=== PATIENT | male | born 1940 | race Caucasian/White ===

== ENCOUNTER 2016-06-09 19:59 | Emergency (ER) | payer MEDICARE ==
--- NOTE | 2016-06-09 20:16 | Emergency Department Record ---
History of Present Illness - General Chief complaint: Lower Extremity Pain Stated complaint: RT LEG PAIN Time Seen by Provider: 06/09/16 20:16 Source: Patient Mode of Arrival: Wheelchair Limitations: No limitations - History of Present Illness Initial comments: The patient is here due to a hx of chronic R leg pain with walking that has worsened over the last 2 days. He states the pain is worsened with walking and the foot sometimes feels numb. He also feels some cramping in the calf with the walking. The patient denies any trauma, injury, thigh pain, CP, SOB or ELLIS. He has a hx of CAD but no hx of known PVD. Presently the patient denies any pain, discomfort or numbness to the R leg while lying on the cart. MD Complaint: Extremity pain Onset/Timin -: Days(s) Location: Right, Ankle History of Same: No Radiation: None Severity scale (1-10): 10 Quality: Other Consistency: Intermittent Improves with: Other Worsens with: Other Associated Symptoms: Denies other symptoms - Related Data Home Medications Medication Instructions Recorded Confirmed Last Taken Aspirin [Aspirin EC] 81 mg PO DAILY 07/29/14 06/09/16 07/29/14 Previous Rx's Medication Instructions Recorded Hydrocodone/Acetaminophen [[place] 1 each PO QID #15 tablet 06/09/16 5-325 Tablet] Allergies Allergy/AdvReac Type Severity Reaction Status Date / Time No Known Drug Allergies Allergy Verified 07/29/14 14:19 Travel Screening - Travel/Exposure Within Last 30 Days Have you traveled within the last 30 days?: No - Travel/Exposure Within Last Year Have you traveled outside the [place] in the last year?: No - Additonal Travel Details Have you been exposed to anyone with a communicable illness?: No - Travel Symptoms Symptom Screening: None Review of Systems Constitutional: Denies: Chills, Fever Eyes: Denies: Eye discharge ENT: Denies: Congestion Respiratory: Denies: Cough, Dyspnea Past Medical History - SOCIAL HISTORY Smoking Status: Never smoker Alcohol Use: None Drug Use: None - RESPIRATORY Hx Respiratory Disorders: No - CARDIOVASCULAR Hx Cardio Disorders: Yes Hx Heart Attack: Yes (2014) - NEURO Hx Neuro Disorders: No - GI Hx GI Disorders: No - Hx Genitourinary Disorders: No - ENDOCRINE Hx Endocrine Disorders: No - MUSCULOSKELETAL Hx Musculoskeletal Disorders: No - PSYCH Hx Psych Problems: No - HEMATOLOGY/ONCOLOGY Hx Hematology/Oncology Disorders: No Family Medical History Any Significant Family History?: Yes Hx Heart Disease: Mother, Brother/Sister, Grandparents Physical Exam - General General Appearance: Alert, Oriented x3, Cooperative, No acute distress - Head Head exam: Atraumatic, Normocephalic, Normal inspection - Eye Eye exam: Normal appearance, PERRL - Neck Neck exam: Normal inspection, Full ROM. negative: Tenderness - Respiratory Respiratory exam: Normal lung sounds bilaterally. negative: Respiratory distress - Cardiovascular Cardiovascular Exam: Regular rate, Normal rhythm, Normal heart sounds - Extremities Extremities exam: Normal inspection (There is no swelling, bruising, erythema or edema.), Full ROM, Normal capillary refill, Tenderness (mild to the distal posterior lower leg.), Other (The R foot has normal sensation. The DP pulses are trace bilaterally and equal and the PT pulses are strong and full and equal bilaterally.). negative: Calf tenderness, Joint swelling, Pedal edema - Neurological Neurological exam: Alert, Oriented X3. negative: Motor sensory deficit (There is no motor or sensory deficit to the R lower leg and foot.) Course Vital Signs 06/09/16 20:07 Temperature 97.3 F L Pulse Rate 63 Respiratory 16 Rate Blood Pressure 191/91 Pulse Ox 95 - Reevaluation(s) Reevaluation #1: The patient is doing very well at this time. He denies any leg pain or discomfort and is able to walk with no pain initially but then does develop some lower leg pain with the walking. I explained to him that the leg appears normal at this time but I do feel he will need an US tomorrow. The patient states he cannot come back in the morning but can return in the early afternoon for the test. 06/09/16 21:11 Medical Decision Making - Data Complexity MDM Data: Labs Ordered and/or Reviewed, X-Ray Ordered and/or Reviewed - Lab Data Result diagrams: 06/09/16 20:35 06/09/16 20:35 - Radiology Data Radiology results: Report reviewed (R leg: Neg.) Disposition Disposition: Discharge Clinical Impression: Leg pain, right Disposition: Home, Self-Care Condition: (1) Good Instructions: Arthralgia (ED) Additional Instructions: Please take Tylenol or [place] for the pain. Please return to the ER in the morning or early afternoon tomorrow for the vascular tests of the R leg. Return to the ER sooner for any increased pain, swelling, fever, or any new issues. Prescriptions: Hydrocodone/Acetaminophen [[place] 5-325 Tablet] 1 each PO QID #15 tablet Forms: Patient Portal Access Time of Disposition: 21:17
[2016-06-09 20:41] LABS: GRAN % 50.7 % (47-80); HEMATOCRIT 41.9 % (42.0-52.0); HEMOGLOBIN 13.8 gm/dl (14.0-18.0); LYMPH % 34.2 % (16-45); MEAN CELL VOLUME 86.6 fl (81-97); MEAN CORPUSCULAR HEMOGLOBIN 28.5 pg (27-33); MEAN CORPUSCULAR HGB CONC 32.9 g/dl (32-36); MEAN PLATELET VOLUME 11.4 fl (7.4-10.4); MONO % 10.1 % (0-9); PLATELET COUNT 157 K/uL (130-400); RED BLOOD COUNT 4.84 M/uL (4.40-5.70); RED CELL DISTRIBUTION WIDTH 15.9 % (11.5-14.5); WHITE BLOOD COUNT W/O DIFF 5.1 K/uL (4.2-12.2)
[2016-06-09 20:51] LABS: ANION GAP 11.8 (7-16); BLOOD UREA NITROGEN 17 mg/dL (9-20); CARBON DIOXIDE 22.2 mmol/L (22-30); EST GLOMERULAR FILTRATION RATE > 60 ml/min; GLUCOSE,RANDOM 91 mg/dL (70-110)
[2016-06-09 20:54] LABS: INR 1.14; PROTHROMBIN TIME (PATIENT) 12.9 SECONDS (9.5-12.1)
[2016-06-09] MEDS ORDERED: ACETAMINOPHEN 325 MG TAB PO ONE (21:10)
[2016-06-09] MEDS ORDERED: ENOXAPARIN 100 MG/ML SYR SQ ONE (21:10)
[2016-06-09] MEDS ORDERED: HYDROCODONE/APAP 5/325MG TABLET PO ONE (21:18)
--- NOTE | 2016-06-11 12:19 | RADIOLOGY REPORT ---
EXAM: RIGHT TIBIA AND FIBULA, TWO VIEWS HISTORY: CHRONIC RIGHT CALF PAIN. TECHNIQUE: Two views of the right tibia and fibula were obtained. Comparison: None. FINDINGS: No bone or joint abnormality. IMPRESSION: NEGATIVE RIGHT TIBIA AND FIBULA. JOB NUMBER: [id number] [facility]TDD
== END 2016-06-09 21:25 | disposition home or self-care (01) ==
LOC: ER 19:59
DX: M79.661 Pain in right lower leg (principal); M25.571 Pain in right ankle and joints of right foot; R20.0 Anesthesia of skin; I25.10 Atherosclerotic heart disease of native coronary artery without angina pectoris; I25.2 Old myocardial infarction
CPT/HCPCS: 80048; 85025; 85610; 85730; 96372; 99283; J1650

== ENCOUNTER 2016-06-10 13:35 | Emergency (ER) | payer MEDICARE ==
[2016-06-10] MEDS ORDERED: IBUPROFEN 600 MG TABLET PO ONE (18:10)
[2016-06-10] MEDS ORDERED: HYDROCODONE/APAP 5/325MG TABLET PO ONE (18:10)
--- NOTE | 2016-06-10 18:17 | Emergency Department Record ---
History of Present Illness - General Chief complaint: Extremity Problem Stated complaint: NEEDS MORE TESTING Time Seen by Provider: 06/10/16 13:49 Source: Patient Mode of Arrival: Ambulatory Limitations: No limitations - History of Present Illness Initial comments: pt here to get dopplers of r leg after being seen by dr camacho last night. pt is having r leg pain and is concerned that he might have a blood clot and arterial blockage. pt has significant pain in r leg that gets much worse with walking.he states that he has a lot of leg cramps and he has been hyperflexing his foot to relieve the cramps. MD Complaint: Extremity pain Onset/Timin -: Days(s) Location: Right, Ankle, Foot, Lower Leg History of Same: Yes Radiation: Proximal, Distal Severity scale (1-10): 5 Quality: Aching, Stabbing Consistency: Constant Improves with: Nothing Worsens with: Nothing Associated Symptoms: Denies other symptoms - Related Data Home Medications Medication Instructions Recorded Confirmed Last Taken Aspirin [Aspirin EC] 81 mg PO DAILY 07/29/14 06/10/16 1 Day Ago Previous Rx's Medication Instructions Recorded Hydrocodone/Acetaminophen [[place] 1 each PO QID #15 tablet 06/09/16 5-325 Tablet] Allergies Allergy/AdvReac Type Severity Reaction Status Date / Time No Known Drug Allergies Allergy Verified 06/10/16 13:50 Travel Screening - Travel/Exposure Within Last 30 Days Have you traveled within the last 30 days?: No - Travel/Exposure Within Last Year Have you traveled outside the [place] in the last year?: No - Additonal Travel Details Have you been exposed to anyone with a communicable illness?: No - Travel Symptoms Symptom Screening: None Review of Systems Reviewed: No additional complaints except as noted below Constitutional: Reports: As per HPI. Denies: Chills, Fever, Malaise, Night sweats, Weakness, Weight change Eyes: Reports: As per HPI. Denies: Eye discharge, Eye pain, Photophobia, Vision change ENT: Reports: As per HPI. Denies: Congestion, Dental pain, Ear pain, Epistaxis , Hearing loss, Throat pain Respiratory: Reports: As per HPI. Denies: Cough, Dyspnea, Hemoptysis, Stridor, Wheezes Cardiovascular: Reports: As per HPI. Denies: Arrhythmia, Chest pain, Dyspnea on exertion, Edema, Murmurs, Orthopnea, Palpitations, Paroxysmal nocturnal dyspnea, Rheumatic Fever, Syncope Endocrine: Reports: As per HPI. Denies: Fatigue, Heat or cold intolerance, Polydipsia, Polyuria Gastrointestinal: Reports: As per HPI. Denies: Abdominal pain, Constipation, Diarrhea, Hematemesis, Hematochezia, Melena, Nausea, Vomiting Genitourinary: Reports: As per HPI. Denies: Dysuria, Frequency, Hematuria, Incontinence, Retention, Testicular pain, Testicular mass, Urgency Musculoskeletal: Reports: As per HPI. Denies: Arthralgia, Back pain, Gout, Joint swelling, Myalgia, Neck pain Skin: Reports: As per HPI. Denies: Bruising, Change in color, Change in hair/ nails, Lesions, Pruritus, Rash Neurological: Reports: As per HPI. Denies: Abnormal gait, Confusion, Headache, Numbness, Paresthesias, Seizure, Tingling, Tremors, Vertigo, Weakness Psychiatric: Reports: As per HPI. Denies: Anxiety, Auditory hallucinations, Depression, Homicidal thoughts, Suicidal thoughts, Visual hallucinations Hematological/Lymphatic: Reports: As per HPI. Denies: Anemia, Blood Clots, Easy bleeding, Easy bruising, Swollen glands Past Medical History - SOCIAL HISTORY Smoking Status: Never smoker Alcohol Use: Rare Drug Use: None - RESPIRATORY Hx Respiratory Disorders: No - CARDIOVASCULAR Hx Cardio Disorders: Yes Hx Heart Attack: Yes (2014) - NEURO Hx Neuro Disorders: No - GI Hx GI Disorders: No - Hx Genitourinary Disorders: No - ENDOCRINE Hx Endocrine Disorders: No - MUSCULOSKELETAL Hx Musculoskeletal Disorders: No - PSYCH Hx Psych Problems: No - HEMATOLOGY/ONCOLOGY Hx Hematology/Oncology Disorders: No Family Medical History Any Significant Family History?: Yes Hx Heart Disease: Mother, Brother/Sister, Grandparents Physical Exam - General General Appearance: Alert, Oriented x3, Cooperative, Mild distress - Head Head exam: Normal inspection - Eye Eye exam: Normal appearance, PERRL, EOMI Pupils: Normal accommodation - ENT ENT exam: Normal exam, Mucous membranes moist, Normal external ear exam, Normal orophraynx Ear exam: Normal external inspection. negative: External canal tenderness Nasal Exam: Normal inspection. negative: Discharge, Sinus tenderness Mouth exam: Normal external inspection, Tongue normal Teeth exam: Normal inspection. negative: Dental caries Throat exam: Normal inspection. negative: Tonsillar erythema, Tonsillar exudate - Neck Neck exam: Normal inspection, Full ROM. negative: Tenderness - Respiratory Respiratory exam: Normal lung sounds bilaterally. negative: Respiratory distress - Cardiovascular Cardiovascular Exam: Regular rate, Normal rhythm, Normal heart sounds Peripheral Pulses: 1+: Dorsalis Pedis (R) (very faint), Dorsalis Pedis (L) - GI/Abdominal GI/Abdominal exam: Soft, Normal bowel sounds. negative: Tenderness - Rectal Rectal exam: Deferred - exam: Deferred - Extremities Extremities exam: Normal inspection, Full ROM, Normal capillary refill, Tenderness (surrounding achilles. achilles is intact. norm lalita.) - Back Back exam: Reports: Normal inspection, Full ROM. Denies: Muscle spasm, Rash noted, Tenderness - Neurological Neurological exam: Alert, CN II-XII intact, Normal gait, Oriented X3 - Psychiatric Psychiatric exam: Normal affect, Normal mood - Skin Skin exam: Dry, Intact, Normal color, Warm Course Vital Signs 06/10/16 06/10/16 13:44 17:53 Temperature 97.8 F Pulse Rate 61 Pulse Rate [ 58 L Pulse Ox Probe] Respiratory 18 18 Rate Blood Pressure 179/94 Blood Pressure 199/98 [Left Arm] Pulse Ox 98 98 - Reevaluation(s) Reevaluation #1: 06/10/16 18:20 d/w pt who does recall hyper flexing foot for a long time with a hoe in an effort to relieve cramp Reevaluation #2: 06/10/16 18:22 venous and arterial dopplers negative Disposition Disposition: Discharge Clinical Impression: Strain of Achilles tendon Qualifiers: Encounter type: initial encounter Laterality: right Qualified Code(s): S86.011A - Strain of right Achilles tendon, initial encounter Hypertension Qualifiers: Hypertension type: essential hypertension Qualified Code(s): I10 - Essential ( primary) hypertension Disposition: Home, Self-Care Condition: (1) Good Instructions: Achilles Tendinitis (ED), Chronic Hypertension (ED) Additional Instructions: follow up with family doctor and with orthopedics. return sooner if worse. have blood pressure rechecked tomorrow and be seen by family doctor. Forms: Patient Portal Access
--- NOTE | 2016-06-14 13:20 | US VENOUS DOPPLER REPORT ---
EXAM: RIGHT LOWER EXTREMITY VENOUS DOPPLER ULTRASOUND HISTORY: PAIN IN RIGHT LEG WITH DECREASED PULSE. TECHNIQUE: Real-time B-mode imaging with and without compression was used to evaluate the right lower extremity for deep venous thrombosis. Duplex Doppler with color and spectral Doppler was used. Comparison: None. FINDINGS: The right common femoral vein showed no DVT. The right femoral vein showed no DVT. The right popliteal vein showed no DVT. The right proximal deep femoral vein showed no DVT. The right posterior tibial vein showed no DVT. The right peroneal vein was not seen. The right proximal greater saphenous vein showed no thrombus. Duplex Doppler and spectral Doppler waveforms shows normal respiratory phasicity in the right common femoral vein. IMPRESSION: NO EVIDENCE RIGHT LOWER EXTREMITY DEEP VENOUS THROMBOSIS IN THE VISUALIZED RIGHT LOWER EXTREMITY. JOB NUMBER: [id number] [facility]TDD
--- NOTE | 2016-06-14 13:53 | US UNI ARTERIAL DOPPLER REPORT ---
EXAM: ARTERIAL DOPPLER OF THE RIGHT LOWER EXTREMITY HISTORY: RIGHT LEG PAIN WITH DECREASED RIGHT LEG PULSE. HISTORY OF CLAUDICATION, RIGHT LOWER EXTREMITY PAIN, CARDIAC DISEASE, HISTORY OF CABG. TECHNIQUE: Real-time ball scale sonographic imaging of the right lower extremity was performed with Duplex Doppler and spectral waveform analysis. Comparison: None. FINDINGS: Spectral waveform analysis reveals normal biphasic and triphasic waveforms at all stations. Ball scale images reveal no evidence of significant atherosclerotic change in the visualized right lower extremity arterial system. Velocities are as follows: Right common femoral artery PSV: 60 cm/s Right profunda femoral artery PSV: 59 cm/s Right proximal SFA PSV: 76 cm/s Right mid SFA PSV: 62 cm/s Right distal SFA PSV: 50 cm/s Right popliteal artery PSV: 59 cm/s Right anterior tibial artery PSV: 38 cm/s Right posterior tibial artery PSV: 60 cm/s Right peroneal artery PSV: NA Right dorsalis pedis artery PSV: 32 cm/s IMPRESSION: UNREMARKABLE ARTERIAL DOPPLER ULTRASOUND OF THE RIGHT LOWER EXTREMITY WITH NO HEMODYNAMICALLY SIGNIFICANT STENOSIS IDENTIFIED. JOB NUMBER: [id number] [facility]TDD
== END 2016-06-10 18:34 | disposition home or self-care (01) ==
LOC: ER 13:35
DX: S86.011A Strain of right Achilles tendon, initial encounter (principal); X50.0XXA Overexertion from strenuous movement or load, initial encounter; I10 Essential (primary) hypertension; I25.2 Old myocardial infarction
CPT/HCPCS: 99283

== ENCOUNTER 2016-11-13 13:09 | Emergency (ER) | payer MEDICARE ==
--- NOTE | 2016-11-13 13:38 | Emergency Department Record ---
History of Present Illness - General Chief Complaint: Dizziness Stated Complaint: DIZZINES, NAUSEA Time Seen by Provider: 11/13/16 13:11 Source: Patient Mode of Arrival: Ambulatory Limitations: No limitations - History of Present Illness Initial Comments: 75 yo male presents to ED with a CC of nausea, weakness, dizziness, and chest discomfort 2 days ago which as resolved. Patient reports "I feel like I don't have any steam". Patient denies fevers, chills, cough, or recent illness. Patient does report increase in his Gabapentin just prior to the onset of his symptoms. Patient reports a history of CAD s/p bypass in 2005 and stenting in 2014. Patient denies any focal weakness on examination. MD Complaint: Dizziness Onset/Timin -: Days(s) Timing: Constant Description: Lightheadedness, Nausea, Off-balance History of Same: No History of Trauma: No Severity: Mild Improves With: Nothing Associated Symptoms: Denies other symptoms - Nazario Coma Scale Eye Response: (4) Open spontaneously Motor Response: (6) Obeys commands Verbal Response: (5) Oriented Nazario Total: 15 - Related Data Home Medications Medication Instructions Recorded Confirmed Last Taken Gabapentin [Neurontin] 300 mg PO TID 11/13/16 11/13/16 11/10/16 Gabapentin [Neurontin] 600 mg PO 11/13/16 11/13/16 11/10/16 Oxycodone HCl/Acetaminophen 1 tab PO Q6H PRN 11/13/16 11/13/16 11/10/16 [Percocet 5mg/325mg] Previous Rx's Medication Instructions Recorded Meclizine HCl [Antivert] 25 mg PO Q8H #15 tablet 11/13/16 Ondansetron [Zofran Odt] 4 mg PO Q6H PRN #20 tab.rapdis 11/13/16 Allergies Allergy/AdvReac Type Severity Reaction Status Date / Time No Known Drug Allergies Allergy Verified 06/10/16 13:50 Travel Screening - Travel/Exposure Within Last 30 Days Have you traveled within the last 30 days?: No - Travel/Exposure Within Last Year Have you traveled outside the [place] in the last year?: No - Additonal Travel Details Have you been exposed to anyone with a communicable illness?: No - Travel Symptoms Symptom Screening: None Review of Systems Constitutional: Reports: Weakness (generalized). Denies: Chills, Fever, Malaise , Night sweats Eyes: Denies: Eye discharge, Eye pain ENT: Denies: Congestion, Ear pain, Epistaxis Respiratory: Denies: Cough, Dyspnea Cardiovascular: Reports: Chest pain. Denies: Dyspnea on exertion, Palpitations Endocrine: Reports: Fatigue. Denies: Heat or cold intolerance Gastrointestinal: Reports: Nausea. Denies: Abdominal pain, Vomiting Genitourinary: Denies: Incontinence, Retention Musculoskeletal: Denies: Arthralgia, Back pain, Gout, Joint swelling Skin: Denies: Bruising, Change in color Neurological: Denies: Abnormal gait, Confusion, Headache, Seizure Psychiatric: Denies: Anxiety Hematological/Lymphatic: Denies: Anemia, Blood Clots Past Medical History - SOCIAL HISTORY Smoking Status: Never smoker Drug Use: None - RESPIRATORY Hx Respiratory Disorders: No - CARDIOVASCULAR Hx Cardio Disorders: Yes Hx Heart Attack: Yes (2014) - NEURO Hx Neuro Disorders: No - GI Hx GI Disorders: No - Hx Genitourinary Disorders: No - ENDOCRINE Hx Endocrine Disorders: No - MUSCULOSKELETAL Hx Musculoskeletal Disorders: No - PSYCH Hx Psych Problems: No - HEMATOLOGY/ONCOLOGY Hx Hematology/Oncology Disorders: No Family Medical History Any Significant Family History?: No Hx Heart Disease: Mother, Brother/Sister, Grandparents Physical Exam - General General Appearance: Alert, Oriented x3, Cooperative, No acute distress Limitations: No limitations - Head Head exam: Atraumatic, Normocephalic, Normal inspection Head exam detail: negative: Abrasion, Contusion, Smith's sign, General tenderness, Hematoma, Laceration - Eye Eye exam: Normal appearance. negative: Conjunctival injection, Periorbital swelling, Periorbital tenderness, Scleral icterus - ENT Ear exam: negative: Auricular hematoma, Auricular trauma Nasal Exam: negative: Active bleeding, Discharge, Dried blood, Foreign body Mouth exam: negative: Drooling, Laceration, Tongue elevation - Neck Neck exam: Normal inspection. negative: Meningismus, Tenderness - Respiratory Respiratory exam: Normal lung sounds bilaterally. negative: Rales, Respiratory distress, Rhonchi, Stridor - Cardiovascular Cardiovascular Exam: Regular rate, Normal rhythm, Normal heart sounds - GI/Abdominal GI/Abdominal exam: Soft. negative: Rebound, Rigid, Tenderness - Rectal Rectal exam: Deferred - exam: Deferred - Extremities Extremities exam: Normal inspection. negative: Calf tenderness, Pedal edema, Tenderness - Back Back exam: Denies: CVA tenderness (R), CVA tenderness (L) - Neurological Neurological exam: Alert, Normal gait, Oriented X3 - Psychiatric Psychiatric exam: Normal affect, Normal mood - Skin Skin exam: Normal color. negative: Abrasion Type of lesion: negative: abrasion Course Vital Signs 11/13/16 13:11 Temperature 98.0 F Pulse Rate 60 Respiratory 16 Rate Blood Pressure 194/90 Pulse Ox 98 - Reevaluation(s) Reevaluation #1: 11/13/16 13:33 EKG: NSR 61 Normal axis, normal intervals Nonspecific T wave changes are present V2-V4 Largely unchanged from 07/11/14 Reevaluation #2: 11/13/16 14:18 Labs reviewed and are grossly unremarkable for an acute process. CT Brain: atrophy, nothing acute. CXR: Cardiomegaly, post-operative changes, nothing acute. Reevaluation #3: 11/13/16 14:36 Patient was updated on all results, ambulation trial demonstrates that the patient is able to ambulate with steady gait, no ataxia or focal weakness noted. Patient reports that he has not had chest pain symptoms in 48 hours, therefore a single Troponin is felt to be satisfactory. Patient believes this pain was related to GERD. I did discuss transfer with the patient for cardiac evaluation, patient declined. Will discharge home on Antivert and Zofran for his symptoms with instructions for close follow-up in 1-3 days. 11/13/16 14:39 Medical Decision Making - Lab Data Result diagrams: 11/13/16 13:40 11/13/16 13:40 Disposition Disposition: Discharge Clinical Impression: Dizziness Chest pain Qualifiers: Chest pain type: unspecified Qualified Code(s): R07.9 - Chest pain, unspecified Condition: (2) Stable Instructions: Dizziness (ED) Additional Instructions: Return to ED if your symptoms worsen or if you have any concerns. Antivert and Zofran as directed. Follow-up with your family doctor in 3-5 days as directed. Prescriptions: Meclizine HCl [Antivert] 25 mg PO Q8H #15 tablet Ondansetron [Zofran Odt] 4 mg PO Q6H PRN #20 tab.rapdis PRN Reason: Nausea/Vomiting Forms: Patient Portal Access Time of Disposition: :40
[2016-11-13 13:49] LABS: BASO % 0.8 % (0-6); EOS % 2.8 % (0-6); GRAN % 55.3 % (47-80); HEMATOCRIT 41.3 % (42.0-52.0); HEMOGLOBIN 13.3 gm/dl (14.0-18.0); LYMPH % 31.5 % (16-45); MEAN CELL VOLUME 88.4 fl (81-97); MEAN CORPUSCULAR HGB CONC 32.2 g/dl (32-36); MEAN PLATELET VOLUME 11.5 fl (7.4-10.4); MONO % 9.6 % (0-9); PLATELET COUNT 172 K/uL (130-400); RED BLOOD COUNT 4.67 M/uL (4.40-5.70); RED CELL DISTRIBUTION WIDTH 15.6 % (11.5-14.5); WHITE BLOOD COUNT W/O DIFF 3.9 K/uL (4.2-12.2)
[2016-11-13 13:52] LABS: MEAN CORPUSCULAR HEMOGLOBIN 28.4 pg (27-33)
[2016-11-13 14:01] LABS: ALB/GLOB RATIO 1.5 (1.1-1.8); ALBUMIN 3.8 gm/dL (3.5-5.0); ALKALINE PHOSPHATASE 77 U/L (38-126); ALT/SGPT 30 U/L (21-72); ANION GAP 5.6 (7-16); AST/SGOT 22 U/L (17-59); BILIRUBIN,TOTAL 0.43 mg/dL (0.2-1.3); BLOOD UREA NITROGEN 18 mg/dL (9-20); CARBON DIOXIDE 23.4 mmol/L (22-30); CREATINE PHOSPHOKINASE 185 U/L (55-170); CREATININE 0.9 mg/dL (0.66-1.25); EST GLOMERULAR FILTRATION RATE > 60 ml/min; GLUCOSE,RANDOM 128 mg/dL (70-110); TOTAL PROTEIN 6.3 gm/dL (6.3-8.2)
[2016-11-13 14:14] LABS: TROPONIN I < 0.012 ng/mL (0.00-0.034)
[2016-11-13 14:23] LABS: URINE APPEARANCE CLEAR; URINE BILIRUBIN NEGATIVE (NEGATIVE); URINE BLOOD NEGATIVE (NEGATIVE); URINE COLOR YELLOW; URINE GLUCOSE (UA) NEGATIVE (NEGATIVE); URINE KETONE NEGATIVE (NEGATIVE); URINE LEUKOCYTE ESTERASE NEGATIVE (NEGATIVE); URINE NITRITE NEGATIVE (NEGATIVE); URINE PROTEIN NEGATIVE (NEGATIVE); URINE UROBILINOGEN 0.2 E.U./dL (0.20 - 1.00)
[2016-11-13] MEDS ORDERED: ONDANSETRON 4 MG ODT TABLET SL ONE (14:36)
[2016-11-13] MEDS ORDERED: MECLIZINE 25 MG TABLET PO ONE (14:36)
--- NOTE | 2016-11-15 09:37 | CT SCAN REPORT ---
EXAM: CT OF THE BRAIN WITHOUT CONTRAST HISTORY: HEADACHE. TECHNIQUE: CT of the brain without contrast was obtained. Comparison: None. FINDINGS: The globes are intact. The paranasal sinuses and mastoid air cells are unremarkable. No displaced or depressed skull fracture. No intra or extraaxial hemorrhage. CT is limited for evaluation of acute infarct. No CT evidence for large or territorial acute infarct. No mass or midline shift. Mild diffuse atrophy. IMPRESSION: MILD ATROPHY. NEGATIVE FOR ACUTE INTRACRANIAL ABNORMALITY. JOB NUMBER: [id number] [facility]
--- NOTE | 2016-11-15 09:38 | RADIOLOGY REPORT ---
EXAM: CHEST, TWO VIEWS HISTORY: CHEST PAIN. TECHNIQUE: Frontal and lateral views of the chest were obtained. Comparison: Prior chest from 07/29/14. FINDINGS: Stable cardiomegaly and post surgical change. The lungs are clear. Elevation of the right hemidiaphragm as before. No discreet pneumothorax. IMPRESSION: NO ACUTE CARDIOPULMONARY PROCESS. STABLE CARDIOMEGALY AND POST SURGICAL CHANGE. JOB NUMBER: [id number] [facility]
== END 2016-11-13 14:53 | disposition home or self-care (01) ==
LOC: ER 13:09
DX: R07.9 Chest pain, unspecified (principal); R42 Dizziness and giddiness; R51 Headache; R11.0 Nausea; R53.1 Weakness; I25.10 Atherosclerotic heart disease of native coronary artery without angina pectoris; I25.2 Old myocardial infarction; Z95.810 Presence of automatic (implantable) cardiac defibrillator; Z95.1 Presence of aortocoronary bypass graft
CPT/HCPCS: 70450; 71020; 80053; 81003; 82550; 84484; 85025; 93005; 93010; 99284

== ENCOUNTER 2018-06-04 08:05 | Emergency (ER) | payer MEDICARE ==
[2018-06-04] MEDS ORDERED: ONDANSETRON HCL IV 4 MG/2 ML VIAL IV ONE (08:26)
[2018-06-04] MEDS ORDERED: SODIUM CHLORIDE 0.9% 500 ML IV ONE (08:26)
--- NOTE | 2018-06-04 08:30 | Emergency Department Record ---
History of Present Illness - General Chief Complaint: Cough Stated Complaint: COUGH,WEAK,VOMITING Time Seen by Provider: 06/04/18 08:19 Source: Patient Mode of Arrival: Ambulatory Limitations: No limitations - History of Present Illness Initial Comments: The patient is here due to a 3 day hx of cough and congestion. He states he is coughing so bad he vomits at times. The patient denies any Cp, SOB, ELLIS, or fever but is just sick of the coughing. He also states he is mildly nauseated at times and has vomited minimally when not coughing but has had no AP. He is concerned he has pneumonia. MD Complaint: Cough Onset/Timin -: Days(s) Consistency: Constant, Getting worse - Related Data Previous Rx's Medication Instructions Recorded Albuterol Sulfate [Proair Hfa] 2 puff IH QID PRN #1 inhaler 06/04/18 Benzonatate [Tessalon Perle] 100 mg PO TID #20 capsule 06/04/18 Prednisone [Prednisone 20Mg] 40 mg PO DAILY #10 tab 06/04/18 Allergies Allergy/AdvReac Type Severity Reaction Status Date / Time morphine AdvReac HEADACHE Verified 06/04/18 08:14 Travel Screening - Travel/Exposure Within Last 30 Days Have you traveled within the last 30 days?: No Review of Systems Constitutional: Reports: Malaise. Denies: Chills, Fever Eyes: Denies: Eye discharge ENT: Denies: Congestion Respiratory: Reports: Cough. Denies: Dyspnea Cardiovascular: Denies: Chest pain Endocrine: Reports: Fatigue Gastrointestinal: Reports: Nausea, Vomiting. Denies: Diarrhea Genitourinary: Denies: Dysuria Musculoskeletal: Denies: Arthralgia Skin: Denies: Bruising Past Medical History - SOCIAL HISTORY Smoking Status: Never smoker Alcohol Use: None Drug Use: None - RESPIRATORY Hx Respiratory Disorders: No - CARDIOVASCULAR Hx Cardio Disorders: Yes Hx Heart Attack: Yes (2014) Hx Pacemaker/Defib: Yes - NEURO Hx Neuro Disorders: No - GI Hx GI Disorders: No - Hx Genitourinary Disorders: No - ENDOCRINE Hx Endocrine Disorders: No - MUSCULOSKELETAL Hx Musculoskeletal Disorders: No - PSYCH Hx Psych Problems: No - HEMATOLOGY/ONCOLOGY Hx Hematology/Oncology Disorders: No Family Medical History Any Significant Family History?: Yes Hx Heart Disease: Mother, Brother/Sister, Grandparents Physical Exam - General General Appearance: Alert, Oriented x3, Cooperative, No acute distress - Head Head exam: Atraumatic, Normocephalic, Normal inspection - Eye Eye exam: Normal appearance, PERRL, EOMI - ENT Throat exam: Normal inspection. negative: Tonsillar erythema, Tonsillar exudate - Neck Neck exam: Normal inspection, Full ROM. negative: Tenderness - Respiratory Respiratory exam: Normal lung sounds bilaterally. negative: Respiratory distress - Cardiovascular Cardiovascular Exam: Regular rate, Normal rhythm, Normal heart sounds - GI/Abdominal GI/Abdominal exam: Soft, Normal bowel sounds. negative: Tenderness - Extremities Extremities exam: Normal inspection, Full ROM, Normal capillary refill. negative: Tenderness - Back Back exam: Reports: Normal inspection - Neurological Neurological exam: Alert, Normal gait. negative: Abnormal gait, Motor sensory deficit - Psychiatric Psychiatric exam: negative: Anxious Course Vital Signs 06/04/18 08:07 Temperature 98.5 F Pulse Rate 66 Respiratory 20 Rate Blood Pressure 188/98 Pulse Ox 94 L - Reevaluation(s) Reevaluation #1: The patient is resting comfortably at this time but is intermittently coughing with no sputum. He again denies any CP, SOB, ELLIS, or sweating. I did ask why he is on no cardiac medicines and he states they do not agree with him. He is to take the medicines for his viral URI and see his PCP this week for recheck. On recheck lung exam his lungs are clear with no wheezing or rhonchi. 06/04/18 10:06 06/04/18 10:13 Medical Decision Making - Data Complexity MDM Data: Labs Ordered and/or Reviewed, X-Ray Ordered and/or Reviewed - Lab Data Result diagrams: 06/04/18 08:40 06/04/18 08:40 - Radiology Data Radiology results: Report reviewed (CXR: Neg per Rad.) Disposition Disposition: Discharge Clinical Impression: URI, acute Disposition: Home, Self-Care Condition: (2) Stable Instructions: Cold Symptoms (ED) Additional Instructions: Please take the Tessalon for cough and also the Albuterol and Prednisone. Please also take an OTC cough and cold medicine. Please see your family doctor this week for recheck and to restart your cardiac medicines. Prescriptions: Albuterol Sulfate [Proair Hfa] 2 puff IH QID PRN #1 inhaler PRN Reason: Cough And Difficulty Breathing Benzonatate [Tessalon Perle] 100 mg PO TID #20 capsule Prednisone [Prednisone 20Mg] 40 mg PO DAILY #10 tab Forms: Patient Portal Access Time of Disposition: 10:09 Quality - Quality Measures Quality Measures: N/A - Blood Pressure Screening View Details: Yes Does Patient Have Any of the Following: No Blood Pressure Classification: Hypertensive Reading Systolic Measurement: 145 Diastolic Measurement: 72 Screening for High Blood Pressure: < First Hypertensive BP, F/U Documented > [ [id number]] First Hypertensive Follow-up Interventions: Referral to alternative/primary care provider.
[2018-06-04 08:51] LABS: BASO % 0.2 % (0-6); EOS % 3.2 % (0-6); GRAN % 66.4 % (47-80); HEMATOCRIT 42.4 % (42.0-52.0); HEMOGLOBIN 13.7 gm/dl (14.0-18.0); LYMPH % 18.8 % (16-45); MEAN CELL VOLUME 86.5 fl (81-97); MEAN CORPUSCULAR HEMOGLOBIN 27.9 pg (27-33); MEAN CORPUSCULAR HGB CONC 32.3 g/dl (32-36); MEAN PLATELET VOLUME 10.7 fl (7.4-10.4); MONO % 11.4 % (0-9); PLATELET COUNT 147 K/uL (130-400); WHITE BLOOD COUNT W/O DIFF 4.7 K/uL (4.2-12.2)
[2018-06-04 09:21] LABS: BLOOD UREA NITROGEN 12 mg/dL (8-23); CREATININE 0.9 mg/dL (0.7-1.2); EST GLOMERULAR FILTRATION RATE > 60 mL/min
[2018-06-04 09:22] LABS: TOTAL PROTEIN 6.2 g/dL (6.6-8.7)
[2018-06-04 09:24] LABS: GLUCOSE,RANDOM 107 mg/dL (74-109)
[2018-06-04 09:27] LABS: ALBUMIN 3.9 g/dL (4.0-5.0); ALKALINE PHOSPHATASE 69 U/L (55-149); ALT/SGPT 16 U/L (<41); AST/SGOT 17 U/L (10.0-50.0); BILIRUBIN,DIRECT < 0.2 mg/dL (0-0.3); LIPASE 32 U/L (13-60)
[2018-06-04 09:53] LABS: URINE APPEARANCE CLEAR; URINE BILIRUBIN NEGATIVE (NEGATIVE); URINE BLOOD SMALL (NEGATIVE); URINE COLOR YELLOW; URINE KETONE NEGATIVE (NEGATIVE); URINE LEUKOCYTE ESTERASE NEGATIVE (NEGATIVE); URINE NITRITE NEGATIVE (NEGATIVE); URINE PROTEIN NEGATIVE (NEGATIVE); URINE UROBILINOGEN 0.2 E.U./dL (0.20 - 1.00)
[2018-06-04 09:59] LABS: URINE EPITHELIAL CELLS NONE SEEN (FEW); URINE WBC NONE SEEN (0-2/hpf)
[2018-06-04] MEDS ORDERED: BENZONATATE 100 MG CAPSULE PO ONE (10:05)
--- NOTE | 2018-06-05 08:34 | RADIOLOGY REPORT ---
EXAM: CHEST, TWO VIEWS HISTORY: COUGH, CONGESTION, BODY ACHES AND FEVER FOR FOUR DAYS. TECHNIQUE: Two views of the chest were obtained. Comparison: Chest radiograph 11/13/16. FINDINGS: Implanted left sided cardiac device. The cardiac silhouette is enlarged and similar from prior study. Postoperative changes of the mediastinum. The pulmonary vasculature is not appreciably dilated. No definite new focal pulmonary opacities. No visible pleural fluid collection or pneumothorax. IMPRESSION: NO ACUTE LUNG FINDINGS. JOB NUMBER: [id number] [facility]
== END 2018-06-04 10:22 | disposition home or self-care (01) ==
LOC: ER 08:05
DX: J06.9 Acute upper respiratory infection, unspecified (principal); R05 Cough; R11.2 Nausea with vomiting, unspecified; I25.2 Old myocardial infarction
CPT/HCPCS: 99284 ×2; 96374; 83690; 85025; 80076; 80048; 81001; 84145; 71046; J2405